=== PATIENT | male | born 1980 | race African-American/Black ===

== ENCOUNTER 2024-06-06 22:02 | Emergency (ER) | payer MEDICAID ==
[~2024-06-06] VITALS: Ht 167.6 cm; Wt 71.0 kg
[2024-06-06 22:24] VITALS: O2SAT 100
[2024-06-06] MEDS: KETOROLAC 15MG/ML VIAL IM ONE (23:15)
[2024-06-06] MEDS: LIDOCAINE 5% PATCH TOP SCH (23:15)
[2024-06-07] MEDS ORDERED: LIDO700A15 TP (00:06)
[2024-06-07] MEDS ORDERED: NAPR-1176 MT (00:06)
[2024-06-07 00:48] VITALS: BP 154/82; PULSE 61; RESP 18; TEMP 36.7; O2SAT 100
== END 2024-06-07 00:47 | disposition home or self-care (01) ==
LOC: ER 22:02
DX: M54.6 Pain in thoracic spine (principal); Z79.1 Long term (current) use of non-steroidal anti-inflammatories (NSAID); Z88.0 Allergy status to penicillin
CPT/HCPCS: 96372; 99283; J1885; Z7610